=== PATIENT | female | born 1965 ===

== ENCOUNTER 2017-01-25 08:47 | Emergency (ER) | payer MEDICAID ==
[2017-01-25 09:03] VITALS: BMI 41.1
--- NOTE | 2017-01-25 09:17 | ED PDOC ---
HPI: General Adult Time Seen by Provider: 01/25/17 09:03 Chief Complaint (Nursing): Hip Pain Chief Complaint (Provider): right thigh pain History Per: Patient History/Exam Limitations: no limitations Additional Complaint(s): 51yo female, complaining of 2 days of right thigh pain. No left lower leg pain. No hip pain. No trauma. Unchanged when walking. Using Percocet left over from previous shoulder surgery for pain control. Past Medical History - Family History Family History: States: Unknown Family Hx - Home Medications Home Medications: Ambulatory Orders Medication Instructions Recorded diaZEpam [Valium] 5 mg PO Q6 PRN 01/16/17 oxyCODONE/Acetaminophen [Percocet 1 tab PO Q6 PRN 01/16/17 5/325 mg Tab] - Allergies Allergies/Adverse Reactions: Allergies Allergy/AdvReac Type Severity Reaction Status Date / Time No Known Allergies Allergy Verified 04/30/16 10:53 Review of Systems ROS Statement: Except As Marked, All Systems Reviewed And Found Negative Musculoskeletal: Positive for: Other (thigh pain) Physical Exam - Physical Exam Extremity: Positive for: Tenderness (right lateral thigh tenderness. No ) Additional Comments - Additional Comments Additional Comments: Scribe Attestation: Documented by Andre Tobin acting as a scribe for Ann-Marie Vaca MD. Provider Attestation: All medical record entries made by the Scribe were at my direction and personally dictated by me. I have reviewed the chart and agree that the record accurately reflects my personal performance of the history, physical exam, medical decision making, and the department course for this patient. I have also personally directed, reviewed, and agree with the discharge instructions and disposition.
[2017-01-25] MEDS ORDERED: Oxycodone/Acetaminophen 5/325 mg Tab PO STA (09:22)
[2017-01-25] MEDS ORDERED: Oxycodone/Acetaminophen 5/325 mg Tab ONE (09:28)
--- NOTE | 2017-01-25 12:06 | US ---
PROCEDURE: Right lower extremity venous duplex Doppler. HISTORY: R lateral thigh pain COMPARISON: No prior TECHNIQUE: Common femoral, superficial femoral, popliteal and posterior tibial veins were evaluated. Flow was assessed with color Doppler, compressibility, assessment of phasic flow and augmentation response. FINDINGS: COMMON FEMORAL VEIN: Unremarkable. SUPERFICIAL FEMORAL VEIN: Unremarkable. POPLITEAL VEIN: Unremarkable. POSTERIOR TIBIAL VEIN: Unremarkable. OTHER FINDINGS: None. IMPRESSION: No evidence of deep venous thrombosis in the right lower extremity.
[2017-01-25 12:58] VITALS: BP 128/76; PULSE 78; RESP 19; TEMP 97.6; O2SAT 98
--- NOTE | 2017-01-25 12:58 | RAD ---
PROCEDURE: Pelvis - right hip dated 01/25/2017. HISTORY: Pain. COMPARISON: Correlation made with concurrent radiographs of the right femur. FINDINGS: The current study reveals no evidence of acute displaced fracture nor dislocation. The osseous structures appear intact. Both femoral heads are appropriately located within the respective acetabula. Joint spaces relatively preserved. If symptoms persist or occult fracture suspected clinically recommend follow-up CT scan. Impression: No evidence of acute displaced fracture nor dislocation. Followup CT scan could be performed if further evaluation is required as above. .
--- NOTE | 2017-01-25 12:59 | RAD ---
PROCEDURE: Right femur dated 01/25/2017. AP and lateral views of the right femur performed. HISTORY: Pain. COMPARISON: Correlation made with concurrent radiographs of the pelvis and right hip FINDINGS: The current study reveals no evidence of acute displaced fracture nor dislocation. The osseous structures appear intact. Both femoral heads are appropriately located within the respective acetabula. Joint spaces relatively preserved. No cortical destructive changes seen. If symptoms persist or occult fracture suspected clinically recommend follow-up CT scan. Impression: No evidence of acute displaced fracture nor dislocation. Followup CT scan could be performed if further evaluation is required as above
== END 2017-01-25 12:58 | disposition home or self-care (01) ==
LOC: H.ER 08:47
DX: M25.551 Pain in right hip (principal)

== ENCOUNTER 2017-02-20 15:37 | Emergency (ER) | payer MEDICAID ==
[2017-02-20 15:38] VITALS: BMI 41.1
[2017-02-20 15:54] VITALS: BP 140/87; PULSE 78; RESP 18; TEMP 98.2; O2SAT 99
--- NOTE | 2017-02-20 16:54 | ED PDOC ---
Lower Extremity Pain/Injury Time Seen by Provider: 02/20/17 16:02 Chief Complaint (Nursing): Lower Extremity Problem/Injury Chief Complaint (Provider): Right Thigh Pain History Per: Patient History/Exam Limitations: no limitations Current Symptoms Are (Timing): Still Present Additional Complaint(s): Terri Francis, a 51 year old female, presents to the ED complaining of right thigh pain. The patient states she was here in January for pain in her leg but feels as though it has gotten worse. She states that she can't sleep due to the pain and she has lost 13 pounds. The patient states that she has been taking naproxen and percocet for the pain. She states that she has stopped taking the percocet because when she does take it she feels dizzy ad not like herself. The patient states that she also has not been able to eat and feels as though if she takes the percocets without food she will feel worse. Past Medical History Reviewed: Historical Data, Nursing Documentation, Vital Signs Vital Signs: Last Vital Signs Temp 98.2 F 02/20/17 15:50 Pulse 78 02/20/17 15:50 Resp 18 02/20/17 15:50 BP 140/87 02/20/17 15:50 Pulse Ox 99 02/20/17 15:50 - Medical History PMH: No Chronic Diseases - Surgical History Other surgeries: Shoulder surgery - Family History Family History: States: Unknown Family Hx - Home Medications Home Medications: Ambulatory Orders Medication Instructions Recorded diaZEpam [Valium] 5 mg PO Q6 PRN 01/16/17 oxyCODONE/Acetaminophen [Percocet 1 tab PO Q6 PRN 01/16/17 5/325 mg Tab] Cyclobenzaprine [Cyclobenzaprine 10 mg PO TID PRN #15 tab 01/25/17 HCl] Naproxen [Naprosyn] 500 mg PO BID PRN #15 tablet 01/25/17 - Allergies Allergies/Adverse Reactions: Allergies Allergy/AdvReac Type Severity Reaction Status Date / Time No Known Allergies Allergy Verified 04/30/16 10:53 Review of Systems Musculoskeletal: Positive for: Other (Left thigh pain) Physical Exam - Reviewed Nursing Documentation Reviewed: Yes Vital Signs Reviewed: Yes - Physical Exam Appears: Positive for: Non-toxic, No Acute Distress Head Exam: Positive for: ATRAUMATIC, NORMAL INSPECTION, NORMOCEPHALIC Skin: Positive for: Normal Color, Warm, Dry Eye Exam: Positive for: Normal appearance, EOMI, PERRL ENT: Positive for: Normal ENT Inspection Neck: Positive for: Normal, Painless ROM, Supple Cardiovascular/Chest: Positive for: Regular Rate, Rhythm, Chest Non Tender. Negative for: Tachycardia Respiratory: Positive for: Normal Breath Sounds. Negative for: Wheezing, Respiratory Distress Gastrointestinal/Abdominal: Positive for: Normal Exam, Bowel Sounds, Soft. Negative for: Tenderness, Guarding Back: Positive for: Normal Inspection. Negative for: L CVA Tenderness, R CVA Tenderness Extremity: Positive for: Normal ROM. Negative for: Tenderness, Pedal Edema, Deformity, Swelling Neurologic/Psych: Positive for: Alert, Oriented, Gait - ECG O2 Sat by Pulse Oximetry: 99 (RA) Pulse Ox Interpretation: Normal Medical Decision Making Medical Decision Makin Initial Impression: 51 year old female presenting with left thigh pain Initial Plan: * Tylenol 325 mg PO * Ultram 50mg PO * Reevaluation * Pt redused pain medications. Pt states percocet she did not take at home because she did not eat and when she doesn't eat she feels abnormal when taking percocet. PT states naproxen not working. PT states she does not want an oral medication and wants an injection. I discussed that I would like to try PO medications in Er to make sure her pain is controlled and she can take the medications at home. Pt gets angry and leaves ER. Pt was going to be discharged pending pain management however she was going to be discharged after pain control. Scribe Attestation Documented by Jaimie uA acting as a scribe for Lois Juares PA-C. Scribe Attestation All medical record entries made by the Scribe were at my direction and personally dictated by me. I have reviewed the chart and agree that the record accurately reflects my personal performance of the history, physical exam, medical decision making, and the department course for this patient. I have also personally directed, reviewed, and agree with the discharge instructions and disposition. Disposition - Clinical Impression Clinical Impression: Leg pain - Patient ED Disposition Is Patient to be Admitted: No Counseled Patient/Family Regarding: Diagnosis, Need For Followup - Disposition Disposition: Routine/Home Disposition Time: 17:11 Condition: STABLE
== END 2017-02-20 17:30 | disposition home or self-care (01) ==
LOC: H.ER 15:37
DX: M79.604 Pain in right leg (principal)

== ENCOUNTER 2017-05-19 10:21 | Day surgery (SDC) | payer MEDICAID ==
[2017-05-19 10:52] VITALS: RESP 20
[2017-05-19] MEDS ORDERED: Lactated Ringer's 1,000 ML IV ONE (11:16)
[2017-05-19 11:17] VITALS: BMI 39.4
[2017-05-19] MEDS ORDERED: methylPREDNISolone Depo 80 mg/ml Inj ONE (12:27)
[2017-05-19] MEDS ORDERED: Lidocaine 1% Inj (20ml) ONE (12:28)
[2017-05-19] MEDS ORDERED: Bupivacaine HCl 0.5% PF (30 ml) Inj ONE (12:28)
[2017-05-19] MEDS ORDERED: Bupivacaine HCl 0.25% PF (30 ml) Inj ONE (12:28)
[2017-05-19] MEDS ORDERED: Iohexol 300 10 ML ONE (12:28)
[2017-05-19] MEDS ORDERED: HYDROmorphone 0.5 mg/0.5 ml ISec IVP PRN (12:34)
[2017-05-19] MEDS ORDERED: Lactated Ringer's 1,000 ML IV SCH (12:45)
[2017-05-19] MEDS ORDERED: Midazolam 2 MG/2 ML VIAL ONE (13:22)
[2017-05-19 13:40] VITALS: O2SAT 100
[2017-05-19 14:44] VITALS: BP 128/86; PULSE 73; TEMP 97.9
--- NOTE | 2017-05-19 15:19 | RAD ---
PROCEDURE: Fluoroscopy up to 1 hr. HISTORY: PAIN MANAGEMENT COMPARISON: None TECHNIQUE: Standard protocol for this study/examination. FINDINGS: Submitted images from the current procedure: 1.0 IMPRESSION: Less than 1 hr fluoroscopic time utilized during performance of the procedure.
--- NOTE | 2017-05-20 01:05 | OP ---
PROCEDURE DATE: 05/19/2017 PREOPERATIVE DIAGNOSIS: Lumbar radiculopathy. POSTOPERATIVE DIAGNOSIS: Lumbar radiculopathy. PROCEDURE: Caudal epidural under fluoroscopic guidance. ESTIMATED BLOOD LOSS: None. COMPLICATIONS: None. DESCRIPTION OF PROCEDURE: After informed consent was obtained, the patient was brought to the OR and placed on the table in a prone position. All pressure points were padded and sedation was administered by Anesthesia. The lumbosacral spine was then prepped with iodine x3 and draped in normal sterile fashion. 2 mL of 1% lidocaine was used for skin. X-ray was used in the AP and lateral views to identify the sacral hiatus. A 20-gauge Tuohy epidural needle was advanced under x-ray lateral view to guevara the sacrococcygeal ligament. There was no paresthesia during placement of the needle. After negative aspiration for heme or CSF, 2 mL of Omnipaque 300 contrast dye was used to delineate the epidural space. After negative aspiration for heme or CSF, 20 mL of 0.5% lidocaine and 0.25% bupivacaine and Depo-Medrol were easily instilled into the epidural space. There was no paresthesia during the procedure. The patient was brought to stage II recovery room with stable vital signs and bilateral lower extremity motor and sensory intact. Magy Ordonez MD MTDD
== END 2017-05-19 15:43 | disposition home or self-care (01) ==
LOC: H.OPSURG 10:21
PROVIDERS: ATTEND Anesthesiology Pain Medicine
DX: M54.16 Radiculopathy, lumbar region (principal)
CPT/HCPCS: 62323; J1040; J2250; J3010; J7120; Q9967

== ENCOUNTER 2017-06-24 07:20 | Day surgery (SDC) | payer MEDICAID ==
[2017-06-24] MEDS ORDERED: Lactated Ringer's 1,000 ML IV ONE (07:41)
[2017-06-24 07:58] VITALS: O2SAT 100
[2017-06-24] MEDS ORDERED: Lidocaine 2% MPF (5 ml) Inj ONE (08:28)
[2017-06-24] MEDS ORDERED: Propofol 10 mg/ml Inj (20 ML) ONE (08:28)
[2017-06-24 09:16] VITALS: PULSE 76; TEMP 98
[2017-06-24 09:33] VITALS: BP 110/57; RESP 20
== END 2017-06-24 09:34 | disposition home or self-care (01) ==
LOC: H.ENDO 07:20
PROVIDERS: ATTEND Internal Medicine Gastroenterology
DX: Z12.11 Encounter for screening for malignant neoplasm of colon (principal); F32.9 Major depressive disorder, single episode, unspecified; K64.8 Other hemorrhoids; D12.0 Benign neoplasm of cecum; D12.4 Benign neoplasm of descending colon; K44.9 Diaphragmatic hernia without obstruction or gangrene; K30 Functional dyspepsia; K29.50 Unspecified chronic gastritis without bleeding
CPT/HCPCS: 43239; 45380; 88305; J2704; J7120

== ENCOUNTER 2018-10-28 09:13 | Emergency (ER) | payer MEDICAID ==
[2018-10-28 09:41] VITALS: BMI 41.8
[2018-10-28] MEDS ORDERED: Iohexol 240 (50 ml) PO ONE (09:59)
[2018-10-28] MEDS ORDERED: Iohexol 240 (50 ml) ONE (10:13)
[2018-10-28 10:25] LABS: ALB/GLOB RATIO 1.1 (1.0-2.1); ALBUMIN 3.7 g/dL (3.5-5.0); ALT/SGPT 40 U/L (9-52); AST/SGOT 28 U/L (14-36); BLOOD UREA NITROGEN 9 mg/dl (7-17); CALCIUM 9.1 mg/dL (8.4-10.2); GFR NON-AFRICAN AMERICAN > 60; LIPASE 112 U/L (23-300)
[2018-10-28 10:27] LABS: BASO % 0.5 % (0.0-2.0); EOS # 0.1 K/uL (0.0-0.7); EOS % 1.1 % (0.0-4.0); HEMOGLOBIN 12.9 g/dL (12.0-16.0); LYMPH # 1.5 K/uL (1.0-4.3); LYMPH % 31.7 % (20.0-40.0); MEAN CELL VOLUME 87.8 fl (81.0-99.0); MEAN CORPUSCULAR HEMOGLOBIN 29.3 pg (27.0-31.0); MEAN CORPUSCULAR HGB CONC 33.4 g/dL (33.0-37.0); MEAN PLATELET VOLUME 8.6 fl (7.2-11.7); MONO # 0.5 K/uL (0.0-0.8); MONO % 10.9 % (0.0-10.0); NEUT # 2.7 K/uL (1.8-7.0); NEUT % 55.8 % (50.0-75.0); NRBC % 0.2 % (0.0-0.0); RBC 4.42 Mil/uL (3.80-5.20); RED CELL DISTRIBUTION WIDTH 13.6 % (11.5-14.5); WHITE BLOOD COUNT 4.8 K/uL (4.8-10.8)
[2018-10-28] MEDS ORDERED: Sodium Chloride 0.9% 1,000 ML IV STA (10:36)
--- NOTE | 2018-10-28 10:46 | ED PDOC ---
HPI: Abdomen Time Seen by Provider: 10/28/18 09:38 Chief Complaint (Nursing): Abdominal Pain Chief Complaint (Provider): Abdominal Pain History Per: Patient Onset/Duration Of Symptoms: Days (x4) Current Symptoms Are (Timing): Still Present Location Of Pain/Discomfort: Diffuse Associated Symptoms: Fever, Chills, Nausea, Vomiting, Diarrhea, Back Pain. denies: Urinary Symptoms Additional Complaint(s): 53 year old female with a past medical history of depression who is presenting to the ED for evaluation of abdominal pain, vomiting, and diarrhea onset 4 days ago. Patient states that 4 days ago she ate a tuna sandwich and that same evening began vomiting which continued until yesterday. She admits that started having watery diarrhea the next day which continued into today. Patient adds that she began to gradually develop diffuse abdominal pain associated with lower back pain. She denies any urinary complaints but does report tactile fevers and chills. Patient offers no other medical complaints at this time. PMD: Chicho Garcia Past Medical History Reviewed: Historical Data, Nursing Documentation, Vital Signs - Medical History PMH: Arthritis, Depression, Migraine Denies: Anxiety, Bipolar Disorder, Paranoia, Post Traumatic Stress Disorder, Chronic Kidney Disease, Schizophrenia - Surgical History Other surgeries: hysterectomy, and orthopedic surgery - Family History Family History: States: Unknown Family Hx - Social History Current smoker - smoking cessation education provided: Yes Alcohol: Social Drugs: Denies - Home Medications Home Medications: Ambulatory Orders Medication Instructions Recorded Dicyclomine [Dicyclomine HCl] 10 mg PO TID #15 cap 10/28/18 - Allergies Allergies/Adverse Reactions: Allergies Allergy/AdvReac Type Severity Reaction Status Date / Time No Known Allergies Allergy Verified 04/30/16 10:53 Review of Systems ROS Statement: Except As Marked, All Systems Reviewed And Found Negative Constitutional: Positive for: Fever, Chills Gastrointestinal: Positive for: Nausea, Vomiting, Abdominal Pain, Diarrhea Genitourinary Female: Negative for: Dysuria, Frequency, Incontinence, Hematuria Musculoskeletal: Positive for: Back Pain Physical Exam - Reviewed Nursing Documentation Reviewed: Yes Vital Signs Reviewed: Yes - Physical Exam Appears: Positive for: Non-toxic, No Acute Distress Head Exam: Positive for: ATRAUMATIC, NORMAL INSPECTION, NORMOCEPHALIC Skin: Positive for: Normal Color, Warm, DRY Eye Exam: Positive for: EOMI, Normal appearance, PERRL ENT: Positive for: Normal ENT Inspection Neck: Positive for: Normal, Painless ROM Cardiovascular/Chest: Positive for: Regular Rate, Rhythm. Negative for: Murmur Respiratory: Positive for: Normal Breath Sounds. Negative for: Respiratory Distress Gastrointestinal/Abdominal: Positive for: Soft, Tenderness (mild diffuse tenderness ). Negative for: Mass, Distended, Guarding, Rebound, Hernia Back: Positive for: L CVA Tenderness, R CVA Tenderness. Negative for: Vertebral Tenderness Extremity: Positive for: Normal ROM. Negative for: Deformity, Swelling Neurological/Psych: Positive for: Awake, Alert, Normal Tone, Oriented (x3). Negative for: Motor/Sensory Deficits - Laboratory Results Result Diagrams: 10/28/18 10:00 10/28/18 10:00 Lab Results: Total Bilirubin 0.6 mg/dl (0.2-1.3) 10/28/18 10:00 AST 28 U/L (14-36) 10/28/18 10:00 ALT 40 U/L (9-52) 10/28/18 10:00 Alkaline Phosphatase 63 U/L (38-126) 10/28/18 10:00 Total Protein 7.2 G/DL (6.3-8.2) 10/28/18 10:00 Albumin 3.7 g/dL (3.5-5.0) 10/28/18 10:00 Globulin 3.5 gm/dL (2.2-3.9) 10/28/18 10:00 Albumin/Globulin Ratio 1.1 (1.0-2.1) 10/28/18 10:00 Lipase 112 U/L (23-300) 10/28/18 10:00 - Progress Re-evaluation Time: 14:56 Condition: Re-examined, Improved Medical Decision Making Medical Decision Making: Time: 10:00 Impression: Abdominal Pain, vomiting, diarrhea Differentials: acute gastroenteritis, colitis, pancreatitis, UTI Plan: --CT Abd.Pelvis --CMP --Lipase --ED Urine --ED Urine Dipstick --CBC --Bentyl 10 mg PO --IV Fluids --Omnipaque 50 ml PO --Toradol 30 mg IVP --Zofran [address] Abd/Pelvis: FINDINGS: LOWER THORAX: Mild passive/dependent type atelectasis seen both posterior lower lung merrill. Heart is upper limits of normal/borderline enlarged. No significant pericardial effusion. There is a small hiatal hernia. LIVER: Liver is enlarged measuring nearly 20 cm in CC dimension. Mild diffuse fatty hepatic infiltration. No obvious hepatic mass collection or calcification. Portal and splenic veins are opacified. GALLBLADDER AND BILE DUCTS: Gallbladder physiologically distended with no evidence of intraluminal gallbladder calculi. Phrygian cap felt to be present. PANCREAS: Unremarkable. No mass. No ductal dilatation. SPLEEN: Spleen exhibits normal size and attenuation pattern. ADRENALS: No obvious adrenal lesions. KIDNEYS AND URETERS: Kidneys demonstrate relatively symmetric nephrograms. No evidence of nephrolithiasis or hydronephrosis. BLADDER: Urinary bladder appears incompletely distended with slight of wall thickening. Correlation with urinalysis recommended to exclude cystitis. REPRODUCTIVE: Hysterectomy APPENDIX: Normal appendix best seen on axial series 3, image # [id number] BOWEL: Evaluation of the bowel slightly limited due to incomplete opacification. The stomach is incompletely distended with unopacified fluid. Wall thickening likely exaggerated due to incomplete extension. Visualized loops of small bowel exhibit normal contour and caliber. No evidence of acute mechanical small bowel obstruction.. Large bowel appears unremarkable without evidence of definitive mural wall thickening. PERITONEUM: Unremarkable. No fluid collection. No free air. Small fat containing umbilical hernia. Small fat containing right inguinal hernia. LYMPH NODES: There are multiple small nonspecific retroperitoneal lymph nodes.. Multiple relatively small to medium-sized scattered mesenteric lymph nodes are present. Rule out mesenteric adenitis VASCULATURE: Unremarkable. No aortic aneurysm. No aortic atherosclerotic calcification or mural plaque present. BONES: Minor multilevel degenerative spondylosis of the thoracic spine. OTHER FINDINGS: None. IMPRESSION: Hepatomegaly with mild fatty hepatic infiltration. There are multiple small to medium-sized mesenteric lymph nodes; rule out mesenteric adenitis. Small hiatal hernia. No evidence of acute appendicitis. Hysterectomy. Urinary bladder wall is slightly thickened in part due to incomplete distention however correlation with urinalysis recommended to exclude cystitis Rule out mesenteric adenitis as described above. Scribe Attestation: Documented by Simran Juarez, acting as a scribe for Jalen Hackett MD. Provider Scribe Attestation: All medical record entries made by the Scribe were at my direction and personally dictated by me. I have reviewed the chart and agree that the record accurately reflects my personal performance of the history, physical exam, medical decision making, and the department course for this patient. I have also personally directed, reviewed, and agree with the discharge instructions and disposition. Disposition - Clinical Impression Clinical Impression: Mesenteric adenitis, Vomiting and diarrhea - Patient ED Disposition Is Patient to be Admitted: No Doctor Will See Patient In The: Office Counseled Patient/Family Regarding: Studies Performed, Diagnosis, Need For Followup - Disposition Referrals: Chicho Garcia MD [Family Provider] - Disposition: Routine/Home Disposition Time: 14:58 Condition: GOOD Additional Instructions: OLGA LAWS, thank you for letting us take care of you today. Your provider was Jalen Hackett MD and you were treated for VOMITING, DIARRHEA, ABD PAIN. The emergency medical care you received today was directed at your acute symptoms. If you were prescribed any medication, please fill it and take as directed. It may take several days for your symptoms to resolve. Return to the Emergency Department if your symptoms worsen, do not improve, or if you have any other problems. Please contact your doctor or call one of the physicians/clinics you have been referred to that are listed on the Patient Visit Information form that is included in your discharge packet. Bring any paperwork you were given at discharge with you along with any medications you are taking to your follow up visit. Our treatment cannot replace ongoing medical care by a primary care provider outside of the emergency department. Thank you for allowing the [facility] team to be part of your care today. If you had an X-Ray or CT scan: A Radiologist will review the ED reading if any change in treatment is needed we will contact you. If you had a blood, urine, or wound culture: It will take several days for the results, if any change in treatment is needed we will contact you. If you had an STI test: It will take 48 hours for the results. Please call after 1 week if you have not heard back. Prescriptions: Dicyclomine [Dicyclomine HCl] 10 mg PO TID #15 cap Instructions: Diarrhea in Adolescents and Adults, Mesenteric Lymphadenitis (DC) Forms: [facility] (Amharic) Print Language: POLISH
[2018-10-28] MEDS ORDERED: Sodium Chloride 0.9% 50 ML IV ONE (12:00)
[2018-10-28] MEDS ORDERED: Iohexol 300 100 ML IJ ONE (12:00)
--- NOTE | 2018-10-28 13:42 | CT ---
Date of service: 10/28/2018 PROCEDURE: CT abdomen pelvis HISTORY: Abdominal pain diarrhea back pain COMPARISON: Comparison made with prior CT scan of the abdomen and pelvis dated 08/31/2012. TECHNIQUE: Contiguous axial images of the abdomen and pelvis performed following oral and intravenous injection of approximately 95 cc Omnipaque 300 contrast material. Additional 2D sagittal and coronal reformats generated. Radiation dose: Total exam DLP = 891.15 mGy-cm. This CT exam was performed using one or more of the following dose reduction techniques: Automated exposure control, adjustment of the mA and/or kV according to patient size, and/or use of iterative reconstruction technique. FINDINGS: LOWER THORAX: Mild passive/dependent type atelectasis seen both posterior lower lung merrill. Heart is upper limits of normal/borderline enlarged. No significant pericardial effusion. There is a small hiatal hernia. LIVER: Liver is enlarged measuring nearly 20 cm in CC dimension. Mild diffuse fatty hepatic infiltration. No obvious hepatic mass collection or calcification. Portal and splenic veins are opacified. GALLBLADDER AND BILE DUCTS: Gallbladder physiologically distended with no evidence of intraluminal gallbladder calculi. Phrygian cap felt to be present. PANCREAS: Unremarkable. No mass. No ductal dilatation. SPLEEN: Spleen exhibits normal size and attenuation pattern. ADRENALS: No obvious adrenal lesions. KIDNEYS AND URETERS: Kidneys demonstrate relatively symmetric nephrograms. No evidence of nephrolithiasis or hydronephrosis. BLADDER: Urinary bladder appears incompletely distended with slight of wall thickening. Correlation with urinalysis recommended to exclude cystitis. REPRODUCTIVE: Hysterectomy APPENDIX: Normal appendix best seen on axial series 3, image # [id number] BOWEL: Evaluation of the bowel slightly limited due to incomplete opacification. The stomach is incompletely distended with unopacified fluid. Wall thickening likely exaggerated due to incomplete extension. Visualized loops of small bowel exhibit normal contour and caliber. No evidence of acute mechanical small bowel obstruction.. Large bowel appears unremarkable without evidence of definitive mural wall thickening. PERITONEUM: Unremarkable. No fluid collection. No free air. Small fat containing umbilical hernia. Small fat containing right inguinal hernia. LYMPH NODES: There are multiple small nonspecific retroperitoneal lymph nodes.. Multiple relatively small to medium-sized scattered mesenteric lymph nodes are present. Rule out mesenteric adenitis VASCULATURE: Unremarkable. No aortic aneurysm. No aortic atherosclerotic calcification or mural plaque present. BONES: Minor multilevel degenerative spondylosis of the thoracic spine. OTHER FINDINGS: None. IMPRESSION: Hepatomegaly with mild fatty hepatic infiltration. There are multiple small to medium-sized mesenteric lymph nodes; rule out mesenteric adenitis. Small hiatal hernia. No evidence of acute appendicitis. Hysterectomy. Urinary bladder wall is slightly thickened in part due to incomplete distention however correlation with urinalysis recommended to exclude cystitis Rule out mesenteric adenitis as described above.
[2018-10-28 15:27] VITALS: RESP 18; O2SAT 99
[2018-10-28 15:36] VITALS: BP 129/78; PULSE 711; TEMP 98
== END 2018-10-28 15:24 | disposition home or self-care (01) ==
LOC: H.ER 09:13
DX: I88.0 Nonspecific mesenteric lymphadenitis (principal); R11.10 Vomiting, unspecified; R19.7 Diarrhea, unspecified; K44.9 Diaphragmatic hernia without obstruction or gangrene
CPT/HCPCS: 74177; 80053; 83690; 85025; 96374; 96375; 99284; J1885; J2405; J7030; Q9966; Q9967